=== PATIENT | female | born 1960 | race Caucasian/White ===

== ENCOUNTER 2018-05-20 02:33 | Emergency (ER) | payer OTHER ==
[~2018-05-20] VITALS: Ht 160 cm; Wt 53.0 kg
[2018-05-20] MEDS ORDERED: ONDANSETRON HCL 4MG/2ML INJ IV STA (03:21)
[2018-05-20] MEDS ORDERED: KETOROLAC 30MG/ML VIAL IV STA (03:21)
[2018-05-20] MEDS ORDERED: TETANUS, DIPHTHERIA, PERTUSSIS VAC/PF 0.5ML (>7YR OLD) IM ONE (03:30)
[2018-05-20] MEDS ORDERED: BACITRACIN ZINC OINT UDPKT TOP ONE (03:30)
[2018-05-20] MEDS ORDERED: SODIUM CHLORIDE 0.9% 1000ML BAG (SEPSIS BOLUS) IV ONE (03:30)
[2018-05-20] MEDS ORDERED: PIPERACILLIN/TAZ 3.375G PREMIX 50 ML IV ONE (03:30)
[2018-05-20] MEDS ORDERED: VANCOMYCIN 1 G PREMIX 200 ML IV ONE (03:30)
[2018-05-20 04:20] LABS: BASOPHILS % 0.2 % (0.0-2.0); EOSINOPHILS % 0.1 % (0.0-5.0); HEMATOCRIT. 36.5 % (36.0-48.0); HEMOGLOBIN. 12.4 g/dL (12.0-16.0); LYMPHOCYTES % 13.9 % (20.0-50.0); MEAN CORPUSCULAR HEMOGLOBIN 31.4 pg (28.0-32.0); MEAN CORPUSCULAR VOLUME 92.5 fL (81.0-99.0); MEAN PLATELET VOLUME 8.4 fl (7.4-10.4); MONOCYTES % 5.7 % (2.0-8.0); NEUTROPHILS % 80.1 % (40.0-76.0); PLATELET 189 x1000/uL (130-400); RED BLOOD CELL COUNT 3.94 mill/uL (4.2-5.4)
[2018-05-20 04:25] LABS: CHLORIDE 105 mEq/L (98-107); PROTHROMBIN TIME 10.3 sec (9.1-11.1)
[2018-05-20 04:29] LABS: ETHANOL BLOOD < 10 mg/dL
[2018-05-20 06:59] VITALS: BP 123/82
== END 2018-05-20 07:19 | disposition home or self-care (01) ==
LOC: ER 02:33
DX: S61.531A Puncture wound without foreign body of right wrist, initial encounter (principal); S91.031A Puncture wound without foreign body, right ankle, initial encounter; S81.032A Puncture wound without foreign body, left knee, initial encounter; E86.0 Dehydration; R53.1 Weakness; F41.9 Anxiety disorder, unspecified; I10 Essential (primary) hypertension; W54.0XXA Bitten by dog, initial encounter; Y93.89 Activity, other specified; Y92.89 Other specified places as the place of occurrence of the external cause; Y99.8 Other external cause status
CPT/HCPCS: 36415; 71045; 73130; 80053; 80320; 82962; 83605; 83690; 84484; 85025; 85610; 87040; 90471; 90715; 93005; 96365; 96367; 96375; 99284; J1885; J2405; J2543; J3370; J7030; Z7610; G0480